=== PATIENT | female | born 1940 | race Caucasian/White ===

== ENCOUNTER 2017-03-06 12:54 | Observation (INO) | payer MEDICARE ==
[2017-03-06] VITALS (11 sets, daily range): BP systolic 97–173; BP diastolic 51–86; PULSE 80–124; RESP 15–16; TEMP 97.9–98.2; O2SAT 97–100
[2017-03-06] MEDS ORDERED: ASPIRIN 81 MG CHEW TAB PO ONE (13:30)
[2017-03-06] MEDS ORDERED: SODIUM CHLORIDE 0.9% FLUSH 10 ML FLUSH IVF PRN (13:30)
[2017-03-06] MEDS ORDERED: NITROGLYCERIN 0.4 MG SL 25 TABS/BTL SL ONE (13:30)
--- NOTE | 2017-03-06 13:43 | PD ---
HPI Chief Complaint: Chest Pain Time Seen by Provider: 13:37 Travel History International Travel<30 days: No Contact w/Intl Traveler<30days: No History of Present Illness HPI 76-year-old female presents to the emergency department sent by flasher adjuster, Dr. Ricardo, for evaluation shortness of breath, dizziness, chest pressure. Patient had knee surgery on February 03. Since then she has had chest pain, elevated heart rate, walking shortness of breath, lightheaded and weakness. She feels that she has [place]und on her chest. Patient was seen at [facility] on February 18 or with normal CXR, troponin, venous Doppler. She had CTA which showed no PE per the patient. The patient was discharged. She followed up with Dr. Ricardo today who did an echocardiogram. She was then referred to the emergency department for further evaluation. The patient does have history of abnormal EKG, angina pectoris, hypercholesterolemia, sinus tachycardia, diabetes, pericarditis. She states she was on Ervin for 5 days after the surgery, but is not currently on there also. Her note, Dr. Ricardo is to be called after we get her test results back. Patient denies syncope. Patient has not had aspirin today. Patient denies any history of CHF, DVT, PE. PFSH Social History Alcohol Use: No Tobacco Use: No Substance Use: No Allergies-Medications (Allergen,Severity, Reaction): Coded Allergies: Flu Vaccine (Verified Allergy, Severe, systemic illness, 03/06/17) Aricept (Verified Adverse Reaction, Mild, Nausea/Vomiting, 03/06/17) Bactrim (Verified Adverse Reaction, Mild, Nausea/Vomiting, 03/06/17) Codeine (Verified Adverse Reaction, Mild, nausea, 03/06/17) Compazine (Verified Adverse Reaction, Mild, nausea, 03/06/17) Darvon (Verified Adverse Reaction, Mild, nausea, 03/06/17) Inderal (Verified Adverse Reaction, Mild, Insomnia, 03/06/17) Motrin (Verified Adverse Reaction, Mild, nausea, 03/06/17) Reported Meds & Prescriptions Reported Meds & Active Scripts Active Reported Restoril (Temazepam) 30 Mg Cap 30 Mg PO HS PRN Omeprazole 20 Mg Tab 20 Mg PO DAILY Metformin (Metformin HCl) 500 Mg Tab 500 Mg PO BID With meals Namenda Xr (Memantine) 21 Mg Caper 21 Mg PO DAILY Fentanyl Patch 72 HR (Fentanyl) 50 Mcg/Hr Patch 50 Mcg T-DERMAL Q72H Remove old patch when new one placed. Bumetanide 0.5 Mg Tab 0.5 Mg PO DAILY Dulcolax DR (Bisacodyl) 5 Mg Tabdr 5 Mg PO DAILY Atorvastatin (Atorvastatin Calcium) 10 Mg Tab 10 Mg PO HS Xarelto (Rivaroxaban) 10 Mg Tab 10 Mg PO DAILY Celebrex (Celecoxib) 100 Mg Cap 200 Mg PO BID Percocet (Oxycodone-Acetaminophen) 2.5-325 mg Tab 1 Tab PO Q4H PRN Review of Systems Except as stated in HPI: all other systems reviewed are Neg Physical Exam Narrative GENERAL: Well-nourished, well-developed female patient, afebrile. SKIN: Focused skin assessment warm/dry. HEAD: Normocephalic. Atraumatic. EYES: No scleral icterus. No injection or drainage. NECK: Supple, trachea midline. No JVD or lymphadenopathy. CARDIOVASCULAR: Regular rhythm without murmurs, gallops, or rubs. Patient is tachycardic with heart rate between 101- 120. RESPIRATORY: Breath sounds equal bilaterally. No accessory muscle use. Lungs sounds are clear to auscultation. GASTROINTESTINAL: Abdomen soft, non-tender, nondistended. MUSCULOSKELETAL: No cyanosis, or edema. Patient has Steri-Strips to right anterior knee with no erythema or drainage. BACK: Nontender without obvious deformity. No CVA tenderness. Data Data Last Documented VS Vital Signs Date Time Temp Pulse Resp B/P Pulse Ox O2 Delivery O2 Flow Rate FiO2 03/06/17 13:53 105 15 155/74 100 Nasal Cannula 2 03/06/17 13:38 98.0 Orders Electrocardiogram (03/06/17 ) Electrocardiogram (03/06/17 13:28) Basic Metabolic Panel (Bmp) (03/06/17 13:28) Ckmb (Isoenzyme) Profile (03/06/17 13:28) Complete Blood Count With Diff (03/06/17 13:28) Magnesium (Mg) (03/06/17 13:28) Prothrombin Time / Inr (Pt) (03/06/17 13:28) Act Partial Throm Time (Ptt) (03/06/17 13:28) Troponin I (03/06/17 13:28) Chest, Single Ap (03/06/17 13:28) Ecg Monitoring (03/06/17 13:28) Bilateral Bp Monitoring (03/06/17 13:28) Iv Access Insert/Monitor (03/06/17 13:28) Oximetry (03/06/17 13:28) Oxygen Administration (03/06/17 13:28) Aspirin Chew (Aspirin Chew) (03/06/17 13:30) Sodium Chloride 0.9% Flush (Ns Flush) (03/06/17 13:30) Nitroglycerin Sl (Nitrostat Sl) (03/06/17 13:30) Metoprolol Tartrate Inj (Lopressor Inj) (03/06/17 15:15) Diet Npo (03/06/17 Dinner) Nitroglycerin 2% Oint (Nitroglycerin 2% (03/06/17 15:15) Consult Cardiology (03/06/17 ) Cardiac Catheterization (03/06/17 ) (Hub Use Only)Inp Phy Cons/Ref (03/06/17 ) Labs Laboratory Tests Test 03/06/17 13:45 White Blood Count 12.5 TH/MM3 Red Blood Count 4.35 MIL/MM3 Hemoglobin 12.7 GM/DL Hematocrit 38.7 % Mean Corpuscular Volume 88.9 FL Mean Corpuscular Hemoglobin 29.3 PG Mean Corpuscular Hemoglobin 33.0 % Concent Red Cell Distribution Width 14.3 % Platelet Count 397 TH/MM3 Mean Platelet Volume 7.8 FL Neutrophils (%) (Auto) 73.5 % Lymphocytes (%) (Auto) 16.6 % Monocytes (%) (Auto) 8.6 % Eosinophils (%) (Auto) 0.8 % Basophils (%) (Auto) 0.5 % Neutrophils # (Auto) 9.1 TH/MM3 Lymphocytes # (Auto) 2.1 TH/MM3 Monocytes # (Auto) 1.1 TH/MM3 Eosinophils # (Auto) 0.1 TH/MM3 Basophils # (Auto) 0.1 TH/MM3 CBC Comment DIFF FINAL Differential Comment Prothrombin Time 10.6 SEC Prothromb Time International 1.0 RATIO Ratio Activated Partial 25.5 SEC Thromboplast Time Sodium Level 137 MEQ/L Potassium Level 3.8 MEQ/L Chloride Level 97 MEQ/L Carbon Dioxide Level 31.6 MEQ/L Anion Gap 8 MEQ/L Blood Urea Nitrogen 10 MG/DL Creatinine 1.17 MG/DL Estimat Glomerular Filtration 45 ML/MIN Rate Random Glucose 142 MG/DL Calcium Level 9.2 MG/DL Magnesium Level 1.6 MG/DL Total Creatine Kinase 34 U/L Troponin I LESS THAN 0.02 NG/ML MDM Medical Decision Making Medical Screen Exam Complete: Yes Emergency Medical Condition: Yes Medical Record Reviewed: Yes Interpretation(s) Last Impressions Chest X-Ray 03/06/17 1328 Signed Impressions: Service Date/Time: Monday, March 06, 2017 13:36 - CONCLUSION: No acute disease. Allen Valentino MD Differential Diagnosis ACS versus unstable angina versus electrolyte abnormality versus chest wall pain versus pneumonia versus pneumothorax versus PE Narrative Course 76-year-old female presents to the emergency department sent by Dr. Ricardo for evaluation of shortness of breath, chest pressure, dizziness that started after knee surgery on February 03. EKG shows sinus tachycardia, heart rate 104. CBC, BMP , CK, troponin, magnesium, PTT, PT/INR are ordered and pending. Chest x-ray is ordered and pending. Patient is given aspirin 162 mg by mouth nitroglycerin 0.4 mg sublingually. CBC shows leukocytosis 12.5. BMP shows creatinine 1.17, glucose 142. CK is 34. Troponin is less than 0.02. Magnesium is 1.6. Coags are unremarkable. Chest x-ray shows no acute disease. Upon reevaluation, patient states her pain is now 0/[address] Ricardo, the patient's flasher adjuster, is paged. I spoke to Dr. Ricardo who would like patient to be admitted. He'll take the patient for cardiac catheterization today. He would like a trip left 5 mg IV, Nitropaste, patient to be kept nothing by mouth. Orders are placed. Consult was placed. [place] [facility] is paged for admission. Dr. Mooney accepted admission. Diagnosis Primary Impression: Unstable angina Admitting Information Admitting Physician Requests: Observation Bailey Ruffin Mar 06, 2017 13:43
[2017-03-06] MEDS ORDERED: CELE100C PO (13:59)
[2017-03-06] MEDS ORDERED: PERC2.5T PO (13:59)
[2017-03-06] MEDS ORDERED: FENT50DI T-DERMAL (13:59)
[2017-03-06] MEDS ORDERED: DULC5TAB PO (13:59)
[2017-03-06] MEDS ORDERED: XARE10TA PO (13:59)
[2017-03-06] MEDS ORDERED: REST30CA PO (13:59)
[2017-03-06] MEDS ORDERED: ATOR10TA15 PO (13:59)
[2017-03-06] MEDS ORDERED: TRAM50TA PO (13:59)
[2017-03-06] MEDS ORDERED: BUME0.5T PO (13:59)
[2017-03-06] MEDS ORDERED: OMEP20TA PO (13:59)
[2017-03-06] MEDS ORDERED: METF500T PO (13:59)
[2017-03-06] MEDS ORDERED: MEMA21CA PO (13:59)
--- NOTE | 2017-03-06 14:05 | RADRPT ---
EXAM DATE/TIME: 03/06/2017 13:36 [place] COMPARISON: No previous studies available for comparison. INDICATIONS : Chest pain, short of breath. MEDICAL HISTORY : None. SURGICAL HISTORY : right knee surgery 01/2017 ENCOUNTER: Initial ACUITY: 1 month PAIN SCORE: 8/10 LOCATION: Bilateral chest FINDINGS: A single view of the chest demonstrates the lungs to be symmetrically aerated without evidence of mas s, infiltrate or effusion. The cardiomediastinal contours are unremarkable. Osseous structures are intact. CONCLUSION: No acute disease. Allen Valentino MD on March 06, 2017 at 14:03 Board Certified Radiologist. This report was verified electronically.
[2017-03-06 14:19] LABS: AUTOMATED NEUTROPHIL # 9.1 TH/MM3 (1.8-7.7); BASOPHIL # 0.1 TH/MM3 (0-0.2); BASOPHIL % 0.5 % (0.0-2.0); EOSINOPHIL # 0.1 TH/MM3 (0-0.4); EOSINOPHIL % 0.8 % (0.0-4.0); HEMATOCRIT 38.7 % (35.0-46.0); HEMO FLAGS DIFF FINAL; LYMPH % 16.6 % (9.0-44.0); LYMPHOCYTE # 2.1 TH/MM3 (1.0-4.8); MEAN CELL VOLUME 88.9 FL (80.0-100.0); MEAN CORPUSCULAR HEMOGLOBIN 29.3 PG (27.0-34.0); MONO % 8.6 % (0.0-8.0); NEUT % 73.5 % (16.0-70.0); PLATELET COUNT 397 TH/MM3 (150-450); RED BLOOD COUNT 4.35 MIL/MM3 (4.00-5.30); RED CELL DISTRIBUTION WIDTH 14.3 % (11.6-17.2); WHITE BLOOD COUNT 12.5 TH/MM3 (4.0-11.0)
[2017-03-06 14:29] LABS: APTT (PATIENT) 25.5 SEC (24.3-30.1); PROTHROMBIN TIME - PATIENT 10.6 SEC (9.8-11.6)
[2017-03-06 14:43] LABS: ANION GAP 8 MEQ/L (5-15); BICARBONATE 31.6 MEQ/L (21.0-32.0); BLOOD UREA NITROGEN 10 MG/DL (7-18); CHLORIDE 97 MEQ/L (98-107); GLOMERULAR FILTRATION RATE 45 ML/MIN (>89); MAGNESIUM 1.6 MG/DL (1.5-2.5); POTASSIUM 3.8 MEQ/L (3.5-5.1); SODIUM (NA) 137 MEQ/L (136-145)
[2017-03-06 14:44] LABS: CREATINE KINASE 34 U/L (26-192)
[2017-03-06] MEDS ORDERED: NITROGLYCERIN 2% OINT 1 GM PACKET TOPICAL ONE (15:15)
[2017-03-06] MEDS ORDERED: METOPROLOL TARTRATE 5 MG/5 ML VIAL IV PUSH ONE (15:15)
[2017-03-06] MEDS ORDERED: ONDANSETRON HCL 4 MG/2 ML VIAL IVP PRN (15:30)
[2017-03-06] MEDS ORDERED: NALOXONE HCL 0.4 MG/ML AMP IV PRN (15:30)
[2017-03-06] MEDS ORDERED: SODIUM CHLORIDE 0.9% FLUSH 10 ML FLUSH IV FLUSH PRN ×2 (15:30→17:30)
[2017-03-06] MEDS ORDERED: LACTULOSE SYRUP 20 GM/30 ML CUP PO PRN (15:30)
[2017-03-06] MEDS ORDERED: MAGNESIUM HYDROXIDE SUSP 30 ML CUP PO PRN (15:30)
[2017-03-06] MEDS ORDERED: BISACODYL 10 MG SUPP RECTAL PRN (15:30)
[2017-03-06] MEDS ORDERED: SENNOSIDES 8.6 MG TAB PO PRN (15:30)
[2017-03-06] MEDS ORDERED: IOHEXOL 350 MG/ML 50 ML BTL (for Cath Lab) OTHER ONE (16:32)
[2017-03-06] MEDS ORDERED: HEPARIN-NS/PF INJ 500 ML ONE (16:37)
[2017-03-06] MEDS ORDERED: MIDAZOLAM HCL 2 MG/2 ML VIAL ONE (16:37)
--- NOTE | 2017-03-06 17:19 | HHI.HP ---
HPI Service [facility] Primary Care Physician Eliud Wells DO Admission Diagnosis unstable angina Diagnoses: Travel History International Travel<30 Days: No Contact w/Intl Traveler <30 Da: No History of Present Illness This is a very pleasant 76-year-old female patient of Dr. Eliud Wells and of linecasting machine keyboard operator Dr. Yohannes Ricardo. She was sent in to the emergency department at [facility] from the office of Dr. Ricardo for a combination of chest pain, shortness of breath and dizziness. Dr. Ricardo instructed that he is planning to do a cardiac catheterization later on today. She was seen by the undersigned in room C 33 in the presence of her daughter Freida. The patient stated that she's been having a progressive complaint of exertional chest pressure with shortness of breath and dizziness. This has gotten worse over last few days. At this time she is unable to walk across the room without having no symptoms above. The patient had a right total knee replacement at [facility] by Dr. Aguilar on 02/03/17. The patient stated that since his surgery she's been progressively having the symptoms detailed above. She was actually evaluated at the emergency department at [facility] in the interim, on 02/18/17, and had a chest CT angiogram scan done, this ruled out any possibility of pulmonary embolism. Today and for the first time she received sublingual nitroglycerin which made her symptoms better. An echocardiogram was done at Dr. Ricardo's office. Past Family Social History Past Medical History history of abnormal EKG, angina pectoris, hypercholesterolemia, Early Alzheimer's sinus tachycardia, diabetes, on oral agents pericarditis. Recurrent UTI Acid reflux Weight loss for 2 years for an unclear reason Past Surgical History Right total knee replacement bilateral hip replacements Hysterectomy Appendectomy Cholecystectomy Reported Medications Reported Meds & Active Scripts Active Reported Restoril (Temazepam) 30 Mg Cap 30 Mg PO HS PRN Omeprazole 20 Mg Tab 20 Mg PO DAILY Metformin (Metformin HCl) 500 Mg Tab 500 Mg PO BID With meals Namenda Xr (Memantine) 21 Mg Caper 21 Mg PO DAILY Fentanyl Patch 72 HR (Fentanyl) 50 Mcg/Hr Patch 50 Mcg T-DERMAL Q72H Remove old patch when new one placed. Bumetanide 0.5 Mg Tab 0.5 Mg PO DAILY Dulcolax DR (Bisacodyl) 5 Mg Tabdr 5 Mg PO DAILY Atorvastatin (Atorvastatin Calcium) 10 Mg Tab 10 Mg PO HS Xarelto (Rivaroxaban) 10 Mg Tab 10 Mg PO DAILY, not clear if she still taking this Celebrex (Celecoxib) 100 Mg Cap 200 Mg PO BID Percocet (Oxycodone-Acetaminophen) 2.5-325 mg Tab 1 Tab PO Q4H PRN Allergies: Coded Allergies: Flu Vaccine (Verified Allergy, Severe, systemic illness, 03/06/17) Aricept (Verified Adverse Reaction, Mild, Nausea/Vomiting, 03/06/17) Bactrim (Verified Adverse Reaction, Mild, Nausea/Vomiting, 03/06/17) Codeine (Verified Adverse Reaction, Mild, nausea, 03/06/17) Compazine (Verified Adverse Reaction, Mild, nausea, 03/06/17) Darvon (Verified Adverse Reaction, Mild, nausea, 03/06/17) Inderal (Verified Adverse Reaction, Mild, Insomnia, 03/06/17) Motrin (Verified Adverse Reaction, Mild, nausea, 03/06/17) Family History Mother at the age of 79 and had dementia, father in his 50s of a leaking abdominal aortic aneurysm, one brother still alive has bladder cancer with coronary disease. She lives at home with her nephew . Her daughter lives nearby Social History No smoking, no excessive alcohol, no illicit drug use Physical Exam Vital Signs Vital Signs Date Time Temp Pulse Resp B/P Pulse Ox O2 Delivery O2 Flow Rate FiO2 03/06/17 16:34 86 15 170/85 100 Nasal Cannula 2 03/06/17 15:45 84 15 155/69 99 Nasal Cannula 2 03/06/17 13:53 105 15 155/74 100 Nasal Cannula 2 03/06/17 13:38 98.0 105 15 165/86 98 Room Air 03/06/17 13:38 103 15 98 Room Air 03/06/17 13:38 100 Nasal Cannula 2 03/06/17 13:38 102 15 173/82 100 Nasal Cannula 2 03/06/17 12:56 98.2 124 15 122/64 98 Physical Exam GENERAL: This is a pleasant borderline nourished, well-developed patient, in no apparent distress. SKIN: No rashes, ecchymoses or lesions. Cool and dry. HEAD: Atraumatic. Normocephalic. No temporal or scalp tenderness. EYES: Pupils equal round and reactive. Extraocular motions intact. No scleral icterus. No injection or drainage. ENT: Nose without bleeding, purulent drainage or septal hematoma. Throat without erythema, tonsillar hypertrophy or exudate. Uvula midline. Airway patent. NECK: Trachea midline. No JVD or lymphadenopathy. Supple, nontender, no meningeal signs. CARDIOVASCULAR: Regular rate and rhythm without murmurs, gallops, or rubs. RESPIRATORY: Clear to auscultation. Breath sounds equal bilaterally. No wheezes , rales, or rhonchi. GASTROINTESTINAL: Abdomen soft, non-tender, nondistended. No hepato-splenomegaly , or palpable masses. No guarding. MUSCULOSKELETAL: Extremities without clubbing, cyanosis, or edema. No joint tenderness, effusion, or edema noted. No calf tenderness. Negative Homans sign bilaterally. NEUROLOGICAL: Awake and alert. Cranial nerves II through XII intact. Normal speech. Laboratory Laboratory Tests Test 03/06/17 13:45 White Blood Count 12.5 Red Blood Count 4.35 Hemoglobin 12.7 Hematocrit 38.7 Mean Corpuscular Volume 88.9 Mean Corpuscular Hemoglobin 29.3 Mean Corpuscular Hemoglobin 33.0 Concent Red Cell Distribution Width 14.3 Platelet Count 397 Mean Platelet Volume 7.8 Neutrophils (%) (Auto) 73.5 Lymphocytes (%) (Auto) 16.6 Monocytes (%) (Auto) 8.6 Eosinophils (%) (Auto) 0.8 Basophils (%) (Auto) 0.5 Neutrophils # (Auto) 9.1 Lymphocytes # (Auto) 2.1 Monocytes # (Auto) 1.1 Eosinophils # (Auto) 0.1 Basophils # (Auto) 0.1 CBC Comment DIFF FINAL Differential Comment Prothrombin Time 10.6 Prothromb Time International 1.0 Ratio Activated Partial 25.5 Thromboplast Time Sodium Level 137 Potassium Level 3.8 Chloride Level 97 Carbon Dioxide Level 31.6 Anion Gap 8 Blood Urea Nitrogen 10 Creatinine 1.17 Estimat Glomerular Filtration 45 Rate Random Glucose 142 Calcium Level 9.2 Magnesium Level 1.6 Total Creatine Kinase 34 Troponin I LESS THAN 0.02 Result Diagram: 03/06/17 1345 03/06/17 1345 Imaging Echocardiogram shows no evidence of acute coronary event Last 24 hours Impressions Chest X-Ray 03/06/17 1328 Signed Impressions: Service Date/Time: Monday, March 06, 2017 13:36 - CONCLUSION: No acute disease. Allen Valentino MD Assessment and Plan Assessment and Plan Assessment Exertional chest pressure, dyspnea and tachycardia on minimal exertion Suspected crescendo angina/acute coronary syndrome Uncontrolled hypertension Diabetes mellitus Renal dysfunction Management Admit to telemetry Nothing by mouth Cardiac catheterization later today Nitropaste Aspirin Consult cardiology Accu-Cheks before meals and at bedtime or every 6 hours is still fasting Sliding-scale of insulin Fasting lipid profile TSH Blood pressure control DVT prophylaxis, at this time sequentials are ordered however further DVT prophylaxis will have to be determined following the cardiac catheterization Follow renal function Follow electrolytes and replace as needed Hold off metformin at this time Discussed at length with patient and her daughter Discussed with emergency provider Discussed with nurse Dr. [place] will Follow 45 minutes spent Discussed With: Nurse, Family Becki Mooney MD Mar 06, 2017 17:19
[2017-03-06 17:24] LABS: CREATINE KINASE 42 U/L (26-192)
--- NOTE | 2017-03-06 17:28 | CATHPROC ---
mGaadi HIS Report Study Information Study Number Admission Scheduled Start Study Start [id number] Mar 06 2017 12:54PM 03/06/2017 Mar 06 2017 4:10PM [place] Service Cardiac Catheterization Admit Source Facility Department Emergency department [facility] - Bench Assembler Operator Physician and Clinical Staff Initial Yohannes Bustamante Cloth Laminating Supervisornakita Rader RN, Lisa Benton RN Recorder Michelle Don RN Scrub Nir Donahue RCIS(BS) Procedures Performed Procedure Location (Site) Vessel Name Angiogram LV LV Ventricle Coronary Angiograms LCA Left Coronary Coronary Angiograms RCA Right Coronary L Heart Cath Wire insertion Fem Art (right) Femoral Art Equipment Time Freight Elevator Operator Description Size Mfg Part Number Used/Scraped TRANSDUCER, TRUWAVE [id number] 16:15 OLIVO WINN * Used W/STOCKCOCK *[id number] *[id number] *[id number] PIGTAIL ANG. 145 INFINITI [id number] CATHETER *[id number] 17:10 [facility]IG/[facility] MEDICAL ANGIOSEAL, FR6 VIP FR 6 Used *[id number] 16:15 [employer] PACK, CCL CUSTOM * Used *[id number] 16:15 [employer] PACER PEN, SKIN DUAL W/ RULER * Used *[id number] 16:15 [employer] MEDICAL SHEATH, FR6.5 PRELUDE 11CM FR 6.5 038ACT Used *[id number] 16:15 [employer] MEDICAL WIRE, 3MMJ .035 180CM 180CM Used *[id number] 16:15 NAMIC MANIFOLD, 4 PORT * Used *[id number] 16:15 [employer] OMNIPAQUE, 350 MG, 100ML 100ML [id number] Used [id number] 16:15 [employer] MEDICAL BLANKET,WARM AIR CCL * Used *[id number] Equipment Model, Serial, Lot Number and Expiration Data Description Model Number Serial Number Lot Number Expiration Date ANGIOSEAL, FR6 VIP [id number] 10-14-2017 History: Current Medications Medication Dosage/Unit Route Frequency Last Date/Time Taken Statins (any) XARELTO History: Allergies Allergy Reaction Aricept Nausea/Vomiting Bactrim Nausea/Vomiting Codeine nausea Compazine nausea Darvon nausea Flu Vaccine systemic illness Inderal Insomnia Motrin nausea History: Risk Factors Family History of Hypertension Dyslipidemia Previous LA Previous Heart Failure Premature CAD Yes Yes Yes No No Cerebrovascular Peripheral Artery Chronic Lung On Dialysis Diabetes Diabetes Therapy Disease Disease Disease History: Symptoms/Diagnosis Selection Items Chest pain SOB History: Stress Tests Stress or Imaging Studies Performed No History: Other Current Smoker No Labs Hgb (g/dl) Hct (%) WBC (l/cumm) Platelets (thousands) 11.60-17.00 35.00-51.00 4.00-11.00 150.00-450.00 12.7 38.7 12.5 397 Glucose (mg/dl) BUN (mg/dl) Creatinine (mg/dl) BUN:Creatinine (1:x) 74.00-106.00 7.00-18.00 0.50-1.30 10.00-20.00 142 10 1.1 9.1 Na (meq/l) K (meq/l) 136.00-145.00 3.50-5.10 137 3.8 INR (PTT:PT) 0.90-1.10 1 Troponin I (ng/ml) CPK (u/l) CPK-MB (ng/ML) 0.02-0.05 26.00-308.00 0.50-3.60 0.02 34 Not Drawn Medication Medication Total Dose (Bolus/Oral) Medication Total Dosage/Unit 1% XYLOCAINE 20 mL VERSED 1 mg Medications (Bolus/Oral) Medication Time Given Dosage/Unit Administered By Reason VERSED 03/06/2017 4:49:39 PM 1 mg Lisa Guerrero 1 mg VERSED given in lab by Lisa Guerrero, RN in Right Antecubital via Peripheral IV. Ordered by Yohannes Osorio. 1% XYLOCAINE 03/06/2017 4:55:36 PM 20 mL Yohannes Ricardo 20 mL 1% XYLOCAINE given in lab by Yohannes Ricardo in Right Groin via Subcutaneous. Ordered by Yohannes Ricardo. Initial Case Assessment Cardiovascular HR Rhythm NIBP Chest Pain 93 NSR 143/83 3 Edema Present Skin color Skin None Normal Warm Dry Circulatory - Right Pulses Dorsalis Pedis Posterior Tibial Femoral 1 1 1 Scale (0,1,2,3,4,d) Circulatory - Left Pulses Dorsalis Pedis Posterior Tibial Femoral 1 1 1 Scale (0,1,2,3,4,d) Circulatory - Lower Extremities Color Lower Right Color Lower Left Normal Normal Neurological State Oriented to time-place- Alert Moves all extremities person Respiration - General Respiration Rate SpO2 (%) (B/min) 13 97 Final Case Assessment Cardiovascular HR Rhythm NIBP Chest Pain 94 NSR 134/72 1 Edema Present Skin color Skin None Normal Warm Dry Circulatory - Right Pulses Dorsalis Pedis Posterior Tibial Femoral 1 1 1 Scale (0,1,2,3,4,d) Circulatory - Left Pulses Dorsalis Pedis Posterior Tibial Femoral 1 1 1 Scale (0,1,2,3,4,d) Circulatory - Lower Extremities Color Lower Right Color Lower Left Normal Normal Neurological State Oriented to time-place- Alert Moves all extremities person Respiration - General Respiration Rate SpO2 (%) (B/min) 11 94 Chronological Log Time Study Chronological Log 16:32:54 Patient arrived via Bed. 16:32:55 Patient Name, D.O.B, / Armband Verified By R.N. 16:32:56 Consent signed by the physician and the patient and verified by the Bench Assembler Operator staff. 16:32:57 Pre-op and post- op instructions given; patient acknowledges understanding of instructions. 16:33:13 MD arrived. Vitals capture started with the following parameters, Patient=Adult, Interval=5 min, Initial Pr zpsbqe=019 mmHg, 16:39:06 Deflation Rate=5 mmHg 16:40:17 HR=96 bpm, QDTI=064/87 mmhg, SpO2=97.0 %, Resp=12 B/min, Pain=3, Valerie=10, Marshall=2 16:43:07 Verbal Stimulation=2 Physical Stimulation=2 Airway=2 Respiration=2 TOTAL=8. (0=absent, 1=li mited, 2=present) 16:43:21 Presedation assessment performed by Bench Assembler Operator RN. 16:43:36 Patient has been NPO for More than 6Hrs. 16:43:37 Skin Breakdown-none per pt 16:43:43 Patient Warmer Placed on the Table. 16:43:46 Anival Prominences Protected 16:43:50 A # 20 IV was noted in the Antecubital (right). Grade = 0 16:44:32 History and physical on the chart or being dictated. Assessment: Initial Case, HR=93 BPM, Rhythm=NSR, OQJT=671/83 mmhg, Chest Pain=3, Edema=None, Color=Normal, Skin = Warm, Dry Right Pulses: Alex Ped=1, Post Tib=1, Femoral=1 Left Pulses: Alex Ped=1, Post Tib=1, Femoral=1 16:44:33 Lower Right Extremities: Color=Normal Lower Left Extremities: Color=Normal Neurological: State=Alert, Ox3, MENDOZA Respiration: Resp=13 B/min, SpO2=97 % 16:44:51 HR=94 bpm, WZII=067/83 mmhg, SpO2=96.0 %, Resp=9 B/min, Pain=3, Valerie=10, Marshall=2 16:44:58 Reference ECG taken 16:45:54 Bilateral groins prepped with 2% chlorhexidine, and with a 3 min. waiting time. 16:49:39 1 mg VERSED given in lab by Lisa Guerrero, RN in Right Antecubital via Peripheral IV. Ord ered by Yohannes Ricardo. 16:49:46 HR=96 bpm, LXOR=220/85 mmhg, SpO2=96.0 %, Resp=10 B/min, Pain=3, Valerie=10, Marhsall=2 16:50:27 Pressure channel 1 zeroed. Time Out. Correct patient, correct procedure,correct physician, ,power injector loaded or not l oaded with contrast with 16:54:28 surgical team present. Time Out Concurred by MD, individual staff and MANUFACTURING MACHINE OPERATOR in procedure 16:54:51 HR=95 bpm, XANT=566/74 mmhg, SpO2=95.0 %, Resp=11 B/min, Pain=3, Valerie=10, Marshall=2 16:55:17 Case Start 16:55:36 20 mL 1% XYLOCAINE given in lab by Yohannes Ricardo in Right Groin via Subcutaneous. Ordered b y Yohannes Ricardo. 16:58:11 Access site was Right Femoral Artery. 16:58:35 A SHEATH, FR6.5 PRELUDE 11CM FR 6.5 was advanced into the Fem Art (right) using the Je gagnon Seldinger technique. 16:59:11 A WIRE, 3MMJ .035 180CM 180CM was inserted via Fem Art (right). A PIGTAIL ANG. 145 INFINITI CATHETER FR 6 was advanced over a wire. OMNIPAQUE, 350 MG, 100ML 10 0ML was 16:59:13 used for injections. 16:59:46 HR=93 bpm, JTHC=891/80 mmhg, SpO2=96.0 %, Resp=11 B/min, Pain=3, Valerie=10, Marshall=2 Recorded Pressure: LV, HR=96, Condition=Condition 1 17:00:24 (Left Ventricle) LV 147/4/5 17:01:00 The LV was injected at 8 cc/sec for a total of 24. OMNIPAQUE, 350 MG, 100ML 100ML used. Recorded Pressure: LV, Ao, HR=96, Condition=Condition 1 17:02:08 (Left Ventricle) LV 134/1/6, (Aorta) Ao 148/73/107 After removing the current catheter a JL 3.5 INFINITI CATHETER FR 6 was advanced over a WIRE, 3 MMJ .035 180CM 17:03:02 180CM. 17:03:54 The LCA was injected and visualized at various angles. OMNIPAQUE, 350 MG, 100ML 100ML used . 17:04:49 HR=91 bpm, MWHM=836/71 mmhg, SpO2=94.0 %, Resp=7 B/min, Pain=1, Valerie=10, Marshall=2 After removing the current catheter a 3DRC INFINITI CATHETER FR 6 was advanced over a WIRE, 3MM J .035 180CM 17:06:11 180CM. 17:07:41 The RCA was injected and visualized at various angles. OMNIPAQUE, 350 MG, 100ML 100ML used . 17:08:40 Catheter was removed 17:08:42 Wire removed 17:09:25 An injection in the Fem Art (right) was made through the SHEATH, FR6.5 PRELUDE 11CM FR 6.5. 17:09:50 HR=97 bpm, YAUV=722/72 mmhg, SpO2=94.0 %, Resp=10 B/min, Pain=1, Marshall=2 17:10:17 ANGIOSEAL, FR6 VIP FR 6 placement in the Fem Art (right) 17:10:35 DOCU called. Spoke to Vika 17:10:57 Bedside Report will be given. 17:11:41 No case complications noted. 17:11:42 Cine recording checked. Assessment: Final Case, HR=94 BPM, Rhythm=NSR, HXHV=920/72 mmhg, Chest Pain=1, Edema=None, Col or=Normal, Skin = Warm, Dry Right Pulses: Alex Ped=1, Post Tib=1, Femoral=1 Left Pulses: Alex Ped=1, Post Tib=1, Femoral=1 17:11:48 Lower Right Extremities: Color=Normal Lower Left Extremities: Color=Normal Neurological: State=Alert, Ox3, MENDOZA Respiration: Resp=11 B/min, SpO2=94 % 17:12:30 Case End 17:14:32 Sterile dressing applied to site 17:14:47 HR=96 bpm, SRJV=212/72 mmhg, SpO2=94.0 %, Resp=21 B/min, Pain=1, Marshall=2 17:15:09 Verbal Stimulation=2 Physical Stimulation=2 Airway=2 Respiration=2 TOTAL=8. (0=absent, 1=l imited, 2=present) 17:15:21 A Left Heart Cath was performed. 17:19:48 HR=94 bpm, HIIQ=144/80 mmhg, Resp=16 B/min, Pain=1, Marshall=2 17:20:00 [facility] to [facility] End Study - Contrast Media Used In Study Contrast Total Opened (mL) Total Used (mL) Total Wasted (mL) Omnipaque 150 35 115 End Study - Maximum Contrast Load Max Contrast Load (mL) 278.9 End Study - Radiation Exposure Fluoro Time (minutes) 1.9 End Study - Patient Disposition Complications Transferred To Interventional Outcome No Bench Assembler Operator Holding successful
[2017-03-06] MEDS ORDERED: MISC INFORMATION XX ONE (17:30)
[2017-03-06] MEDS ORDERED: SODIUM CHLOR 0.9% 1000 ML INJ 1,000 ML IV SCH (17:30)
[2017-03-06] MEDS ORDERED: ONDANSETRON HCL 4 MG/2 ML VIAL IV PRN (17:30)
[2017-03-06] MEDS ORDERED: OXYCODONE ACETAMINOPHEN PO PRN (19:15)
[2017-03-06] MEDS ORDERED: traMADol HCL 50 MG TAB PO PRN (19:15)
[2017-03-06] MEDS ORDERED: TEMAZEPAM 15 MG CAP PO PRN (19:15)
--- NOTE | 2017-03-06 19:22 | MA ---
cc: CHELLE BHANDARI M.D., CRAIG D.O. DATE: 03/06/2017. PROCEDURE PERFORMED: 1. Left heart catheterization. 2. Left ventriculography. 3. Coronary angiography. 4. Right femoral angiography with Angio-Seal placement. BRIEF HISTORY: Lenore Ken is a 76-year-old woman that I met earlier today in my office for an evaluation of chest pain. Her chest pain had features that sounded strongly suggestive of unstable angina with major cardiac risk factors. In the emergency room, her chest pain was relieved with nitroglycerin. For this reason, I elected to go straight to cardiac catheterization to evaluate it further. DESCRIPTION OF THE PROCEDURE IN DETAIL: The patient was brought to the cardiac mason tender restoration labor in a fasting state. She received 1 mg of Versed for IV sedation. Using 1% lidocaine for local anesthesia, a 6.5-Slovak sheath was inserted into the right femoral artery requiring only a single front wall stick. Left ventricular pressure was then recorded using a pigtail catheter followed by left ventriculography and then a pullback. Coronary angiography was completed using a left 3.5 Daniella for the left coronary artery and a 3DRC for the right coronary artery. Angiography was then obtained of the right femoral artery via the sheath followed by uncomplicated Angio-Seal placement. There were no complications. Estimated blood loss was 5 mL. Total contrast load was 35 mL. FINDINGS: 1. HEMODYNAMICS: Left ventricular pressure was 134/1 with an end diastolic pressure of 6. The aortic pressure was 148/73 with a mean of 107. There was no gradient during pullback from the left ventricle to the aorta. 2. LEFT VENTRICULOGRAPHY: Left ventriculography shows a symmetrically jhonatan left ventricle. Estimated ejection fraction was 705. 3. CORONARY ANGIOGRAPHY: The coronary circulation is right dominant. Her coronary arteries appear completely smooth and normal. The left anterior descending artery bifurcates into the left anterior descending and circumflex vessels. The vessels are somewhat tortuous but smooth and normal-appearing. The right coronary artery has a vertical funnel-shaped takeoff followed by a bend but this vessel also appears normal. CONCLUSIONS: 1. Normal hemodynamics. 2. Normal left ventricular function. 3. Normal coronary arteries. The etiology for her chest pain and tachycardia are unclear. She has already been previously evaluated for DVT and pulmonary emboli with negative evaluations for each. She has had second-hand exposure to smoking and I question whether she has a component of COPD explaining the low voltage on the EKG and the dyspnea. Regarding her chest discomfort, the etiology for that remains somewhat unclear. I am going to initiate omeprazole 20 milligrams daily and refer her back to Dr. Wells, possibly for further evaluation and possibly for further GI evaluation. It has been a pleasure being involved in her care. MD ALTA Oneill/[place] /5:27 PM /7:17 PM
[2017-03-06] MEDS ORDERED: ATORVASTATIN 10 MG TAB PO SCH (21:00)
[2017-03-06] MEDS ORDERED: SODIUM CHLORIDE 0.9% FLUSH 10 ML FLUSH IV FLUSH SCH (21:00)
[2017-03-06] MEDS: CELECOXIB 100 MG CAP PO SCH (21:00)
[2017-03-06] MEDS ORDERED: ACETAMINOPHEN 325 MG TAB PO PRN (21:00)
[2017-03-06] MEDS ORDERED: PILL SPLITTER OTHER PRN (21:00)
[2017-03-06] MEDS: SODIUM CHLORIDE 0.9% FLUSH 10 ML FLUSH IV FLUSH SCH (21:31)
[2017-03-06] MEDS: DOCUSATE SODIUM 50 MG/SENNA 8.6 MG TAB PO SCH (21:33)
[2017-03-06] MEDS: D5-1/2 NS + KCL 20 MEQ INJ 1,000 ML IV SCH (21:34)
[2017-03-06] MEDS ORDERED: fentaNYL 50 MCG/HR PATCH T-DERMAL SCH (22:00)
[2017-03-06 23:12] LABS: CREATINE KINASE 20 U/L (26-192)
[2017-03-07] VITALS (15 sets, daily range): BP systolic 97–105; BP diastolic 51–64; PULSE 74–101; RESP 16; TEMP 98.2–98.4; O2SAT 94–98
[2017-03-07 00:14] LABS: BACTERIA, URINE OCC /hpf; BLOOD, URINE TRACE (NEG); COMMENT (UR) CULT NOT INDICATED; CULTURE IF INDICATED CULT NOT INDICATED; GLUCOSE,URINE NEG (NEG); KETONE, URINE NEG (NEG); NITRITE,URINE NEG (NEG); SQUAMOUS EPITHELIAL CELL URINE 1 /hpf (0-5); URINE COLOR YELLOW (YELLW/STRAW)
[2017-03-07 05:38] LABS: BASOPHIL # 0.1 TH/MM3 (0-0.2); BASOPHIL % 0.7 % (0.0-2.0); EOSINOPHIL # 0.2 TH/MM3 (0-0.4); EOSINOPHIL % 2.7 % (0.0-4.0); HEMATOCRIT 30.1 % (35.0-46.0); HEMO FLAGS DIFF FINAL; LYMPH % 40.4 % (9.0-44.0); LYMPHOCYTE # 2.7 TH/MM3 (1.0-4.8); MEAN CORPUSCULAR HEMOGLOBIN 29.3 PG (27.0-34.0); MEAN CORPUSCULAR HGB CONC 33.3 % (32.0-36.0); MONO % 11.4 % (0.0-8.0); NEUT % 44.8 % (16.0-70.0); PLATELET COUNT 304 TH/MM3 (150-450); RED BLOOD COUNT 3.42 MIL/MM3 (4.00-5.30); RED CELL DISTRIBUTION WIDTH 14.4 % (11.6-17.2); WHITE BLOOD COUNT 6.7 TH/MM3 (4.0-11.0)
[2017-03-07 05:53] LABS: BICARBONATE 31.7 MEQ/L (21.0-32.0); POTASSIUM 3.9 MEQ/L (3.5-5.1)
[2017-03-07 06:03] LABS: HDL CHOLESTEROL 44.8 MG/DL (40.0-60.0)
[2017-03-07] MEDS: SODIUM CHLORIDE 0.9% FLUSH 10 ML FLUSH IV FLUSH SCH (08:25)
[2017-03-07] MEDS: RIVAROXABAN 10 MG TAB PO SCH ×3 (08:26→09:00)
[2017-03-07] MEDS: DOCUSATE SODIUM 50 MG/SENNA 8.6 MG TAB PO SCH (08:26)
[2017-03-07] MEDS: CELECOXIB 100 MG CAP PO SCH (08:27)
[2017-03-07] MEDS ORDERED: MEMANTINE 21 MG PO SCH (09:00)
[2017-03-07] MEDS ORDERED: BISACODYL EC 5 MG TABEC PO SCH (09:00)
[2017-03-07] MEDS ORDERED: PANTOPRAZOLE SOD 20 MG DELAYED RELEASE TAB PO SCH (09:00)
[2017-03-07] MEDS ORDERED: BUMETANIDE 1 MG TAB PO SCH (09:00)
[2017-03-07] MEDS: D5-1/2 NS + KCL 20 MEQ INJ 1,000 ML IV SCH (12:00)
--- NOTE | 2017-03-07 12:19 | HHI.PR ---
Subjective Subjective Remarks S/P Cardiac cath 03/06 no cp no sob no alba no fever wants to go home, lives with nephew, was receiving HHC with PT Review of Systems Constitutional Constitutional Remarks 12 point ros completed, negative except as noted above Vitals/Results Intake & Output 03/06/17 03/06/17 03/07/17 15:00 23:00 07:00 Intake Total 1700 ml Output Total 400 ml Balance 1300 ml Intake Oral 500 ml IV Total 1200 ml Output Urine Total 400 ml Vital Signs Vital Signs Date Time Temp Pulse Resp B/P Pulse Ox O2 Delivery O2 Flow Rate FiO2 03/07/17 12:00 80 03/07/17 11:00 98.2 87 16 99/57 95 03/07/17 11:00 88 03/07/17 10:19 83 03/07/17 09:00 74 03/07/17 08:00 74 03/07/17 07:00 82 03/07/17 07:00 98.4 93 16 103/64 98 03/07/17 06:00 74 03/07/17 05:00 84 03/07/17 04:46 85 16 105/55 94 03/07/17 04:00 78 03/07/17 03:00 77 03/07/17 02:00 76 03/07/17 01:00 78 03/07/17 00:00 76 03/07/17 00:00 81 03/07/17 00:00 95 16 97/51 97 03/06/17 22:00 80 03/06/17 21:00 82 03/06/17 20:00 98 03/06/17 19:30 97.9 93 16 103/64 98 03/06/17 19:00 82 03/06/17 16:34 86 15 170/85 100 Nasal Cannula 2 03/06/17 15:45 84 15 155/69 99 Nasal Cannula 2 03/06/17 13:53 105 15 155/74 100 Nasal Cannula 2 03/06/17 13:38 98.0 105 15 165/86 98 Room Air 03/06/17 13:38 103 15 98 Room Air 03/06/17 13:38 100 Nasal Cannula 2 03/06/17 13:38 102 15 173/82 100 Nasal Cannula 2 03/06/17 12:56 98.2 124 15 122/64 98 CBC/BMP: 03/07/17 0423 03/07/17 0423 Lab Results Laboratory Tests Test 03/06/17 03/06/17 03/06/17 03/06/17 13:45 16:15 22:06 23:30 White Blood Count 12.5 TH/MM3 Red Blood Count 4.35 MIL/MM3 Hemoglobin 12.7 GM/DL Hematocrit 38.7 % Mean Corpuscular Volume 88.9 FL Mean Corpuscular Hemoglobin 29.3 PG Mean Corpuscular Hemoglobin 33.0 % Concent Red Cell Distribution Width 14.3 % Platelet Count 397 TH/MM3 Mean Platelet Volume 7.8 FL Neutrophils (%) (Auto) 73.5 % Lymphocytes (%) (Auto) 16.6 % Monocytes (%) (Auto) 8.6 % Eosinophils (%) (Auto) 0.8 % Basophils (%) (Auto) 0.5 % Neutrophils # (Auto) 9.1 TH/MM3 Lymphocytes # (Auto) 2.1 TH/MM3 Monocytes # (Auto) 1.1 TH/MM3 Eosinophils # (Auto) 0.1 TH/MM3 Basophils # (Auto) 0.1 TH/MM3 CBC Comment DIFF FINAL Differential Comment Prothrombin Time 10.6 SEC Prothromb Time International 1.0 RATIO Ratio Activated Partial 25.5 SEC Thromboplast Time Sodium Level 137 MEQ/L Potassium Level 3.8 MEQ/L Chloride Level 97 MEQ/L Carbon Dioxide Level 31.6 MEQ/L Anion Gap 8 MEQ/L Blood Urea Nitrogen 10 MG/DL Creatinine 1.17 MG/DL Estimat Glomerular Filtration 45 ML/MIN Rate Random Glucose 142 MG/DL Calcium Level 9.2 MG/DL Magnesium Level 1.6 MG/DL Total Creatine Kinase 34 U/L 42 U/L 20 U/L Troponin I LESS THAN 0.02 LESS THAN 0.02 LESS THAN 0.02 NG/ML NG/ML NG/ML Urine Color YELLOW Urine Turbidity CLEAR Urine pH 7.0 Urine Specific [place] 1.050 Urine Protein TRACE mg/dL Urine Glucose (UA) NEG mg/dL Urine Ketones NEG mg/dL Urine Occult Blood TRACE Urine Nitrite NEG Urine Bilirubin NEG Urine Urobilinogen LESS THAN 2.0 MG/DL Urine Leukocyte Esterase SMALL Urine RBC 2 /hpf Urine WBC 1 /hpf Urine Squamous Epithelial 1 /hpf Cells Urine Bacteria OCC /hpf Microscopic Urinalysis Comment CULT NOT INDICATED Test 03/07/17 04:23 White Blood Count 6.7 TH/MM3 Red Blood Count 3.42 MIL/MM3 Hemoglobin 10.0 GM/DL Hematocrit 30.1 % Mean Corpuscular Volume 88.0 FL Mean Corpuscular Hemoglobin 29.3 PG Mean Corpuscular Hemoglobin 33.3 % Concent Red Cell Distribution Width 14.4 % Platelet Count 304 TH/MM3 Mean Platelet Volume 7.3 FL Neutrophils (%) (Auto) 44.8 % Lymphocytes (%) (Auto) 40.4 % Monocytes (%) (Auto) 11.4 % Eosinophils (%) (Auto) 2.7 % Basophils (%) (Auto) 0.7 % Neutrophils # (Auto) 3.0 TH/MM3 Lymphocytes # (Auto) 2.7 TH/MM3 Monocytes # (Auto) 0.8 TH/MM3 Eosinophils # (Auto) 0.2 TH/MM3 Basophils # (Auto) 0.1 TH/MM3 CBC Comment DIFF FINAL Differential Comment Sodium Level 140 MEQ/L Potassium Level 3.9 MEQ/L Chloride Level 102 MEQ/L Carbon Dioxide Level 31.7 MEQ/L Anion Gap 6 MEQ/L Blood Urea Nitrogen 10 MG/DL Creatinine 0.83 MG/DL Estimat Glomerular Filtration 67 ML/MIN Rate Random Glucose 91 MG/DL Calcium Level 8.5 MG/DL Triglycerides Level 160 MG/DL Cholesterol Level 120 MG/DL LDL Cholesterol 43 MG/DL HDL Cholesterol 44.8 MG/DL Cholesterol/HDL Ratio 2.67 RATIO Thyroid Stimulating Hormone 2.020 uIU/ML 3rd Gen Physical Exam General General Appearance: Well Developed, Well Nourished, No Acute Distress, Comfortable Eyes Eye Exam: Pupils Equal, Pupils Reactive Ears & Nose Ears & Nose Exam: Nasal Mucosa [place] Throat Throat Exam: Oral Mucosa [place] & Moist Neck Neck Exam: Neck Supple, Trachea Midline Pulmonary Resp Exam: Clear Bilaterally, No Distress Cardiology CV Exam: Regular, Good Perfusion Gastrointestinal/Abdomen GI Exam: Soft, Non-Tender, Bowel Sounds Present, Non-Distended Musculoskeletal MS Exam: Joints Intact MS Remarks right knee with incision, steri strips some swelling Integumentary Skin Exam: Warm, Dry Extremeties Extremities Exam: Pedal Pulses Palpable, Trace Edema Neurologic Neuro Exam: Alert, Awake, Oriented, Speech Clear, Moving All Extremities, No Focal Deficits Psychiatric Psych Exam: Appropriate Responses VTE Prophylaxis VTE Prophylaxis Device: SCDs Assessment/Plan Assessment/Plan Assessment Exertional chest pressure, dyspnea and tachycardia on minimal exertion Suspected crescendo angina/acute coronary syndrome Uncontrolled hypertension Diabetes mellitus Renal dysfunction recent right knee surgery mild dementia Management s/p cardiac cath, clear, no blockages appreciate card input, no clear etiology for cp, recommends f/u with PCP for possible GI eval. Continue PPI S/P right knee surgery was on Xarelto, no longer taking PT eval today resume C pt on multiple pain meds at home recommend to limit narcotic use continue statins Fasting lipid profile ok TSH ok Blood pressure control, improved, BP now low 100s Card cleared for dc CM consult resume HHC/PT Pt eval today Discharge today with [facility] F/U PCP, may need GI eval F/U card if needed Diet-heart healthy Activity-as tolerated, continue with PT Discussed at length with patient Discussed with Dr. Phoenix Discussed with nurse This pt was seen by myself and Dr. Phoenix, this note written on her behalf Discharge Minutes: 40 Jaci Leiva Mar 07, 2017 12:19
--- NOTE | 2017-03-07 12:20 | HHI.FF ---
Face to Face Verification Diagnosis: (1) Unstable angina (2) RECENT RIGHT KNEE SURGERY Physical Therapy Order: Evaluate and Treat Home Health Nursing Order: Medical education Diabetic education Nursing assessment with vital signs I have seen patient Lenore Ken on 03/07/17. My clinical findings support the need for the requested home health care services because: Need for psychosocial assistance High risk of falls I certify that my clinical findings support that this patient is homebound because: Post-op weakness Unsteady gait/balance Jaci Leiva [facility] Mar 07, 2017 12:20
--- NOTE | 2017-03-07 12:25 | EKG ---
Date Performed: 03/06/2017 Time Performed: 13:17:46 PTAGE: 76 years EKG: SINUS TACHYCARDIA POSSIBLE LEFT ATRIAL ENLARGEMENT MINIMAL ST DEPRESSION ABNORMAL RHYTHM EC G INTERPRETATION BASED ON A DEFAULT AGE OF 42 YEARS NO PREVIOUS TRACING DOCTOR: Babar Cohn Interpretating Date/Time 03/07/2017 12:20:30
--- NOTE | 2017-03-07 13:11 | HHI.DCPOC ---
Discharge Care Plan Diagnosis: (1) Unstable angina (2) RECENT RIGHT KNEE SURGERY Your Health Problems Are: Chest Pain Goals to Promote Your Health * To prevent worsening of your condition and complications * To maintain your health at the optimal level Directions to Meet Your Goals Take your medications as prescribed Follow your dietary instruction Follow activity as directed Keep your appointments as scheduled Take your immunizations and boosters as scheduled If your symptoms worsen call your PCP, if no PCP go to Urgent Care Center or Emergency Room Smoking is Dangerous to Your Health. Avoid second hand smoke Call the 24-hour hour crisis hotline for domestic abuse at Jaci Leiva. [facility] Mar 07, 2017 13:11
[2017-03-07] MEDS ORDERED: OMEP40CA2 PO (13:24)
--- NOTE | 2017-03-07 18:35 | HHI.DS ---
Discharge Summary Admission Date Mar 06, 2017 at 15:20 Discharge Date: Mar 07, 2017 Admitting Diagnosis unstable angina (1) Unstable angina (2) RECENT RIGHT KNEE SURGERY Procedures 03/06 cardiac cath Brief History CBC/BMP: 03/07/17 0423 03/07/17 0423 Significant Findings Laboratory Tests Test 03/06/17 03/06/17 03/06/17 03/06/17 13:45 16:15 22:06 23:30 White Blood Count 12.5 TH/MM3 (4.0-11.0) Neutrophils (%) (Auto) 73.5 % (16.0-70.0) Monocytes (%) (Auto) 8.6 % (0.0-8.0) Neutrophils # (Auto) 9.1 TH/MM3 (1.8-7.7) Monocytes # (Auto) 1.1 TH/MM3 (0-0.9) Chloride Level 97 MEQ/L (98-107) Creatinine 1.17 MG/DL (0.50-1.00) Estimat Glomerular Filtration 45 ML/MIN (>89) Rate Random Glucose 142 MG/DL (74-106) Troponin I LESS THAN 0.02 LESS THAN 0.02 LESS THAN 0.02 NG/ML NG/ML NG/ML (0.02-0.05) (0.02-0.05) (0.02-0.05) Total Creatine Kinase 20 U/L (26-192) Urine Specific [place] 1.050 (1.002-1.035) Urine Occult Blood TRACE (NEG) Urine Leukocyte Esterase SMALL (NEG) Urine Bacteria OCC /hpf (NONE) Test 03/07/17 04:23 Red Blood Count 3.42 MIL/MM3 (4.00-5.30) Hemoglobin 10.0 GM/DL (11.6-15.3) Hematocrit 30.1 % (35.0-46.0) Monocytes (%) (Auto) 11.4 % (0.0-8.0) Estimat Glomerular Filtration 67 ML/MIN (>89) Rate Triglycerides Level 160 MG/DL (42-150) Imaging Last Impressions Chest X-Ray 03/06/17 1328 Signed Impressions: Service Date/Time: Monday, March 06, 2017 13:36 - CONCLUSION: No acute disease. Allen Valentino MD Hospital Course This is a very pleasant 76-year-old female patient of Dr. Eliud Wells and of broadcast engineer Dr. Yohannes Ricardo. She was sent in to the emergency department at [facility] from the office of Dr. Ricardo for a combination of chest pain, shortness of breath and dizziness. Dr. Ricardo instructed that he was planning to do a cardiac catheterization later int the day. The patient stated that she had been having a progressive complaint of exertional chest pressure with shortness of breath and dizziness. This had gotten worse over last few days. At that time she was unable to walk across the room without having no symptoms above. The patient had a right total knee replacement at [facility] by Dr. Aguilar on 02/03/17. The patient stated that since his surgery she's been progressively having the symptoms detailed above. She was actually evaluated at the emergency department at [facility] in the interim, on 02/18/17, and had a chest CT angiogram scan done, this ruled out any possibility of pulmonary embolism.She received sublingual nitroglycerin at his office which made her symptoms better at last. An echocardiogram was done at Dr. Ricardo's office. Pt. was admitted for: Exertional chest pressure, dyspnea and tachycardia on minimal exertion Suspected crescendo angina/acute coronary syndrome Uncontrolled hypertension Diabetes mellitus Renal dysfunction recent right knee surgery mild dementia During the course of the hospitalization, the following was done: Serial cardiac enzymes were done, they were negative. Cardiology was consulted, patient was evaluated by Dr. Ricardo who performed a cardiac catheterization. s/p cardiac cath 03/06, clear, no blockages appreciate card input, no clear etiology for cp, recommended f/u with PCP for possible GI eval. Continue PPI S/P right knee surgery was on Xarelto,was no longer taking PT evaluated Consulted case management for [facility] pt on multiple pain meds at home. Was on fentanyl, tramadol as well as Percocet continued statins Fasting lipid profile ok TSH ok Blood pressure control, improved, BP now low 100s Patient chest pain-free, no dyspnea with exertion Card cleared for dc Discharged today with [facility] F/U PCP, may need GI eval Inc. omeprazole to 40 mg po daily. F/U card if needed Diet-heart healthy Activity-as tolerated, continue with PT Pt Condition on Discharge: Stable Discharge Disposition: Disch w/ Home Health Serv Discharge Instructions DIET: Follow Instructions for: Heart Healthy Diet Activities you can perform: Weight Bearing as Jaci Keenan [facility] Mar 07, 2017 18:35
== END 2017-03-07 13:55 | disposition home health service (06) ==
LOC: NEPC 12:54 → UNDOADMOB 15:20 → NEDA 15:20 → HCIS 18:39 → UNDODISOB 03-07 13:55
PROVIDERS: ADMIT Specialist; ATTEND Specialist
DX: I20.9 Angina pectoris, unspecified (principal); R00.0 Tachycardia, unspecified; I10 Essential (primary) hypertension; E11.9 Type 2 diabetes mellitus without complications; N28.9 Disorder of kidney and ureter, unspecified; G30.0 Alzheimer's disease with early onset; E78.00 Pure hypercholesterolemia, unspecified; K21.9 Gastro-esophageal reflux disease without esophagitis; Z79.899 Other long term (current) drug therapy; Z79.01 Long term (current) use of anticoagulants; Z79.84 Long term (current) use of oral hypoglycemic drugs; F02.80 Dementia in other diseases classified elsewhere, unspecified severity, without behavioral disturbance, psychotic disturbance, mood disturbance, and anxiety; Z82.49 Family history of ischemic heart disease and other diseases of the circulatory system
CPT/HCPCS: 71010; 80048; 80061; 81001; 82550; 83735; 84443; 84484; 85025; 85610; 85730; 93005; 93458; 96374; 99285; C1760; C1769; C1893; G0269; G0378; J1644; J2250; J3480; Q9967